=== PATIENT | female | born 1975 | race Caucasian/White ===

== ENCOUNTER 2016-10-18 11:56 | Emergency (ER) | payer OTHER ==
[~2016-10-18] VITALS: Wt 110.5 kg
[2016-10-18] MEDS ORDERED: IBUPROFEN 800 MG TAB PO ONE (12:30)
[2016-10-18] MEDS ORDERED: IBUP-1542 PO (12:34)
--- NOTE | 2016-10-18 13:51 | ERD ---
ER Documentation Chief Complaint Date/Time DATE: 10/18/16 TIME: 13:51 Chief Complaint PT HERE FOR ABNORMAL EKG, LAB WORK, CHEST PAIN EARLIER HPI Patient is a 41-year-old female with thyroid disease and migraine headaches who presents with chest pain. She had chest pain that started 1 week ago and comes and goes. It is a pulsating headache. It was worse yesterday. The pain moves around her left chest she says. She went to a local urgent care and was seen by a nurse practitioner who sent her to the emergency department for further evaluation. She tried aspirin last night. She has not does not currently have a primary doctor. ROS All systems reviewed and are negative except as per history of present illness. Medications Home Meds Active Scripts Ibuprofen* (Motrin*) 600 Mg Tab, 600 MG PO Q6H Y for PAIN AND OR ELEVATED TEMP, #30 TAB Prov:ROBIN SAUCEDA MD 10/18/16 PMhx/Soc Positive for thyroid disease and migraine headaches FmHx Family History: No coronary disease Physical Exam Vitals Vital Signs Date Time Temp Pulse Resp B/P Pulse Ox O2 Delivery O2 Flow Rate FiO2 10/18/16 14:11 98.4 65 18 111/66 100 Room Air 10/18/16 13:28 98.1 73 18 132/70 99 Room Air 10/18/16 11:58 98.3 74 19 135/75 99 Physical Exam Const: No acute distress Head: Atraumatic Eyes: Normal Conjunctiva ENT: Normal External Ears, Nose and Mouth. Neck: Full range of motion..~ No meningismus. Resp: Clear to auscultation bilaterally Cardio: Regular rate and rhythm, no murmurs Abd: Soft, non tender, non distended. Normal bowel sounds Skin: No petechiae or rashes Back: No midline or flank tenderness Ext: No cyanosis, or edema Neur: Awake and alert Psych: Normal Mood and Affect Results 24 hrs Current Medications Medications (Trade) Dose Ordered Sig/Marielena Route PRN Reason Start Time Stop Time Status Last Admin Dose Admin Ibuprofen (Motrin) 800 mg ONCE ONCE PO 10/18/16 12:30 10/18/16 12:31 DC 10/18/16 12:30 Procedures/MDM EKG read by me: Rate/Rhythm: Regular rate and rhythm at a rate of 65 Intervals: Normal Impression: No evidence of ischemia or arrhythmia Chest X-ray 1V Interpreted by me: Soft Tissue: No acute abnormalities Bones: No acute abnormalities Mediastinum/Cardiac Silhouette/Lungs: No acute abnormalities test is negative. Patient is a 41-year-old female presents with chest pain. EKG, chest x-ray, and test are negative. The patient has a PERC score of 0 and I doubt pulmonary embolism. At this point I doubt acute coronary syndrome, pneumonia, pneumothorax, pulmonary embolism, or aortic dissection. I believe outpatient management is appropriate but the patient will need close follow-up with a primary doctor within 24-48 hours. She can follow-up with a primary doctor that is covered by her insurance. She can take ibuprofen as needed for pain or inflammation. She can return for any worsening symptoms. Departure Diagnosis: Primary Impression: Chest pain Chest pain type: unspecified Qualified Code: R07.9 - Chest pain, unspecified type Condition: Fair Patient Instructions: Chest Pain, Uncertain Cause Referrals: Your doctor Additional Instructions: Call your primary care doctor TOMORROW for an appointment during the next 1-2 days.See the doctor sooner or return here if your condition worsens before your appointment time. ROBIN SAUCEDA MD Oct 18, 2016 13:51
--- NOTE | 2016-10-18 13:52 | RADRPT ---
PROCEDURE: XR Chest. CLINICAL INDICATION: chest pain TECHNIQUE: Single frontal view of the chest was obtained COMPARISON: None FINDINGS: The heart and mediastinum are within normal limits. The lungs are clear. There is no pleural effusion or pneumothorax. RPTAT: AA IMPRESSION: No acute disease. .William Palmer MD, Date Time Electronically viewed and signed by .William Palmer MD, on 10/18/2016 13:51 .S/
[2016-10-18 14:11] VITALS: BP 111/66; PULSE 65; RESP 18; TEMP 98.4
== END 2016-10-18 14:46 | disposition home or self-care (01) ==
LOC: E/R 11:56
DX: R07.9 Chest pain, unspecified (principal)
CPT/HCPCS: 71010; 93005

== ENCOUNTER 2016-11-10 13:29 | Emergency (ER) | payer OTHER ==
[~2016-11-10] VITALS: Wt 111.0 kg
[~2016-11-10 13:29] MED LIST: IBUP-1542 PO
[2016-11-10] MEDS ORDERED: KETOROLAC 30 MG INJ IV STA (17:42)
[2016-11-10] MEDS ORDERED: LEVO25TA50 PO (17:51)
--- NOTE | 2016-11-10 18:12 | RADRPT ---
PROCEDURE: XR Chest. CLINICAL INDICATION: Chest pain. TECHNIQUE: Single frontal view. COMPARISON: 10/18/2016. FINDINGS: The lungs are clear. The heart size is normal. There is no pleural effusion. There is no pneumothorax. IMPRESSION: 1. Normal chest radiograph. 2. No change from 10/18/2016. RPTAT: QQ .Julius Tavarez MD, MD Date Time Electronically viewed and signed by .Julius Tavarez MD, MD on 11/10/2016 18:12 .R/
[2016-11-10 18:17] LABS: BASOPHILS % 0.4 % (0.0-2.0); EOSINOPHILS # 0.2 10^3/ul (0.0-0.5); EOSINOPHILS % 2.5 % (0.0-7.0); HEMATOCRIT 40.6 % (37.0-47.0); HEMOGLOBIN 13.8 g/dl (12.0-16.0); LYMPHOCYTES # 2.1 10^3/ul (0.8-2.9); LYMPHOCYTES % 31.2 % (15.0-51.0); MEAN CORPUSCULAR HEMOGLOBIN 31.4 pg (29.0-33.0); MEAN CORPUSCULAR VOLUME 92.3 fl (82.0-101.0); MONOCYTE # 0.4 10^3/ul (0.3-0.9); MONOCYTES % 6.3 % (0.0-11.0); NEUTROPHILS % 59.5 % (39.0-77.0); PLATELET COUNT 244 10^3/UL (140-415); RED CELL DISTRIBUTION WIDTH 11.7 % (11.5-14.5); WHITE BLOOD COUNT 6.7 10^3/ul (4.8-10.8)
[2016-11-10 18:35] LABS: ANION GAP 9 (8-16); BLOOD UREA NITROGEN 12 mg/dl (7-20); CALCIUM 9.4 mg/dl (8.4-10.2); CARBON DIOXIDE 29 mmol/L (21-31); CHLORIDE 105 mmol/L (97-110); CREATININE 0.79 mg/dl (0.44-1.00); GLUCOSE 76 mg/dl (70-220); POTASSIUM 4.2 mmol/L (3.5-5.1); SODIUM 139 mmol/L (135-144)
[2016-11-10 18:58] LABS: TROPONIN-I < 0.012 ng/ml (0.00-0.12)
[2016-11-10] MEDS ORDERED: IBUP-1542 PO (19:33)
--- NOTE | 2016-11-10 19:34 | ERD ---
ER Documentation Chief Complaint Date/Time DATE: 11/10/16 TIME: 19:34 Chief Complaint ON AND OFF CHEST PAIN X1 WEEK, SEEN HERE RECENTLY WITH SAME S/S HPI Patient is a 41-year-old female with no medical problems who presents with chest pain. She has chest pain which comes and goes. She was seen for the same on October 18. She is felt a rapid heartbeat coming and going as well. She said this morning she had a strong and stabbing pain in the midsternal area. Upon review of old medical records she had one previous visit to the ER on October 18 of this year. She does not remember the name of her primary doctor. ROS All systems reviewed and are negative except as per history of present illness. Medications Home Meds Active Scripts Ibuprofen* (Motrin*) 600 Mg Tab, 600 MG PO Q6H Y for PAIN AND OR ELEVATED TEMP, #30 TAB Prov:ROBIN SAUCEDA MD 11/10/16 Reported Medications Levothyroxine Sodium* (Levoxyl*) 25 Mcg Tablet, 25 MCG PO BEFORE BREAKFAST, #30 TAB 11/10/16 Discontinued Scripts Ibuprofen* (Motrin*) 600 Mg Tab, 600 MG PO Q6H Y for PAIN AND OR ELEVATED TEMP, #30 TAB Prov:ROBIN SAUCEDA MD 10/18/16 Allergies Allergies: Coded Allergies: No Known Allergy (Unverified , 11/10/16) PMhx/Soc Medical and Surgical Hx: pt denies Medical Hx History of Surgery: No Anesthesia Reaction: No Hx Neurological Disorder: No Hx Respiratory Disorders: No Hx Cardiac Disorders: No Hx Psychiatric Problems: No Hx Miscellaneous Medical Probl: No Hx Alcohol Use: No Hx Substance Use: No Hx Tobacco Use: No Smoking Status: Never smoker FmHx Family History: No coronary disease Physical Exam Vitals Vital Signs Date Time Temp Pulse Resp B/P Pulse Ox O2 Delivery O2 Flow Rate FiO2 11/10/16 19:44 98.3 81 20 130/71 100 Room Air 11/10/16 18:21 Nasal Cannula 11/10/16 18:19 98.3 73 20 129/72 100 Room Air 11/10/16 13:49 97.3 68 17 128/77 97 Physical Exam Const: No acute distress Head: Atraumatic Eyes: Normal Conjunctiva ENT: Normal External Ears, Nose and Mouth. Neck: Full range of motion..~ No meningismus. Resp: Clear to auscultation bilaterally Cardio: Regular rate and rhythm, no murmurs Abd: Soft, non tender, non distended. Normal bowel sounds Skin: No petechiae or rashes Back: No midline or flank tenderness Ext: No cyanosis, or edema Neur: Awake and alert Psych: Normal Mood and Affect Result Diagram: 11/10/16 1755 11/10/165 Results 24 hrs Laboratory Tests Test 11/10/16 17:55 White Blood Count 6.710^3/ul Red Blood Count 4.4010^6/ul Hemoglobin 13.8g/dl Hematocrit 40.6% Mean Corpuscular Volume 92.3fl Mean Corpuscular Hemoglobin 31.4pg Mean Corpuscular Hemoglobin Concent 34.0g/dl Red Cell Distribution Width 11.7% Platelet Count 40621^3/UL Mean Platelet Volume 10.0fl Neutrophils % 59.5% Lymphocytes % 31.2% Monocytes % 6.3% Eosinophils % 2.5% Basophils % 0.4% Nucleated Red Blood Cells % 0.0/100WBC Neutrophils # 4.010^3/ul Lymphocytes # 2.110^3/ul Monocytes # 0.410^3/ul Eosinophils # 0.210^3/ul Basophils # 0.010^3/ul Nucleated Red Blood Cells # 0.010^3/ul Sodium Level 139mmol/L Potassium Level 4.2mmol/L Chloride Level 105mmol/L Carbon Dioxide Level 29mmol/L Anion Gap 9 Blood Urea Nitrogen 12mg/dl Creatinine 0.79mg/dl Glucose Level 76mg/dl Calcium Level 9.4mg/dl Troponin I < 0.012ng/ml Thyroid Stimulating Hormone (TSH) 1.680MIU/L Free Thyroxine 1.19ng/dl Current Medications Medications (Trade) Dose Ordered Sig/Marielena Route PRN Reason Start Time Stop Time Status Last Admin Dose Admin Ketorolac Tromethamine (Toradol) 30 mg ONCE STAT IV 11/10/16 17:42 11/10/16 17:44 DC Procedures/MDM EKG read by me: Rate/Rhythm: Regular rate and rhythm at a rate of 77 Intervals: Normal Impression: No evidence of ischemia or arrhythmia Chest x-ray negative per radiology. Patient is a 41-year-old female with no cardiac risk factors who presents with chest pain. Given that this is her second visit in the past few weeks she had a workup done which was negative including laboratory studies, EKG, and chest x- ray. Her PERC score is 0 and I doubt pulmonary embolism. At this point I doubt acute coronary syndrome, pneumonia, pneumothorax, or aortic dissection. The patient will be discharged home but will need to follow-up closely with her primary doctor within 24-48 hours. She will be given a prescription for ibuprofen for pain. She can return sooner for any worsening symptoms. Departure Diagnosis: Primary Impression: Chest pain Chest pain type: unspecified Qualified Code: R07.9 - Chest pain, unspecified type Condition: Fair Patient Instructions: Chest Pain, Uncertain Cause Additional Instructions: Call your primary care doctor TOMORROW for an appointment during the next 1-2 days.See the doctor sooner or return here if your condition worsens before your appointment time. ROBIN SAUCEDA MD Nov 10, 2016 19:34
[2016-11-10 19:44] VITALS: BP 130/71; PULSE 81; RESP 20; TEMP 98.3
== END 2016-11-10 19:45 | disposition home or self-care (01) ==
LOC: E/R 13:29
DX: R07.9 Chest pain, unspecified (principal)
CPT/HCPCS: 36415; 71010; 80048; 84439; 84443; 84484; 85025